=== PATIENT | female | born 1960 | race Caucasian/White ===

== ENCOUNTER 2017-05-11 15:23 | Emergency (ER) | payer MEDICAID ==
[~2017-05-11] VITALS: Ht 152.4 cm; Wt 69.9 kg
[2017-05-11 15:29] VITALS: BP_SYST 153
[2017-05-11] MEDS ORDERED: NALOXONE HCL 2 MG/2 ML SYR IVP ONE ×2 (16:30)
[2017-05-11 17:07] LABS: HEMATOCRIT 36.7 % (36-48); HEMOGLOBIN 11.9 g/dL (12.0-16.0); MEAN CORPUSCULAR HEMOGLOBIN 25 pg (27-31); MEAN CORPUSCULAR HGB CONC 33 % (32-36); MEAN CORPUSCULAR VOLUME 78 fL (79.0-98.0); PLATELET COUNT (AUTO) 252 K/uL (130-430); RED BLOOD CELL COUNT(AUTO) 4.71 MIL/uL (4.2-6.2); RED CELL DISTRIBUTION WIDTH 15.9 % (9.0-15.0); WHITE BLOOD COUNT (AUTO) 15.7 K/uL (4.8-10.8)
[2017-05-11 17:18] LABS: ANION GAP 10 (5-15); CALCIUM 8.9 mg/dL (8.4-11.0); CHLORIDE 98 mmol/L (98-107); CREATININE 0.55 mg/dL (0.55-1.30); GFR AFRICAN AMERICAN 148 mL/min (>90); GLUCOSE 117 mg/dL (70-99); POTASSIUM 3.4 mmol/L (3.5-5.1); SODIUM SERUM 133 mmol/L (136-145); UREA NITROGEN, BLOOD 10 mg/dL (8-21)
[2017-05-11 17:22] LABS: ALANINE AMINOTRANSFERASE 111 U/L (12-78); ALBUMIN 3.3 g/dL (3.4-4.8); ASPARTATE AMINOTRANSFERASE 104 U/L (10-37)
[2017-05-11 17:24] LABS: ACETAMINOPHEN < 1 ug/mL (1-30)
[2017-05-11 17:28] LABS: ATYPICAL LYMPHOCYTES % 3 % (0-0); BAND % (MANUAL) 9 % (0-6); BASOPHILS % (MANUAL) 0 % (0-2); EOSINOPHILS % (MANUAL) 0 % (0-7); LYMPHOCYTES % (MANUAL) 6 % (20-46); MONOCYTES % (MANUAL) 11 % (0-11)
[2017-05-11] MEDS ORDERED: KETOROLAC TROMETHAMINE 30 MG VIAL IVP ONE (18:15)
[2017-05-11 19:06] VITALS: BP_SYST 148
== END 2017-05-11 19:06 | disposition left against medical advice (07) ==
LOC: SED 15:23
DX: K81.0 Acute cholecystitis (principal); I10 Essential (primary) hypertension; E11.9 Type 2 diabetes mellitus without complications; R51 Headache; Z88.0 Allergy status to penicillin
CPT/HCPCS: 36415; 70450; 71045; 74176; 80053; 84484; 85007; 85027; 93005; 96374; 96375; 99285; G0480; G0481; J1885; J2310